=== PATIENT | female | born 1970 | race Caucasian/White ===

== ENCOUNTER 2016-10-10 13:14 | Emergency (ER) | payer SELFPAY ==
[~2016-10-10] VITALS: Ht 152.4 cm; Wt 62.8 kg
[2016-10-10 15:50] LABS: microscopic required? YES; urine erythrocyte 2+ (NEGATIVE)
[2016-10-10 17:11] LABS: BASOPHIL % 0.7 % (0-2); PLATELET COUNT 351 x10^3mcL (130-400)
[2016-10-10 17:16] LABS: RED CELL DISTRIBUTION WIDTH 14.9 % (11.5-14.5)
[2016-10-10 17:23] LABS: CALCIUM 9.1 mg/dL (8.5-10.1); CHLORIDE SERUM 104 mmol/L (98-107); CREATININE SERUM 0.7 mg/dL (0.6-1.0); GFR1 > 60 mL/min; GLUCOSE SERUM 86 mg/dL (74-106); POTASSIUM SERUM 4.3 mmol/L (3.5-5.1); SODIUM SERUM 140 mmol/L (136-145)
[2016-10-10 17:28] LABS: ALBUMIN 3.9 g/dL (3.4-5.0); ALKALINE PHOSPHATASE 97 U/L (46-116); ALT/SGPT 34 U/L (14-59); AST/SGOT 20 U/L (15-37); BILIRUBIN TOTAL 0.4 mg/dL (0.20-1.00); TOTAL PROTEIN, SERUM 7.6 g/dL (6.4-8.2)
[2016-10-10 19:11] VITALS: BP 110/54
== END 2016-10-10 19:11 | disposition home or self-care (01) ==
LOC: ED 13:14
PROVIDERS: Emergency Medicine
DX: N10 Acute pyelonephritis (principal); D35.00 Benign neoplasm of unspecified adrenal gland
CPT/HCPCS: J0696; J1885; J2405; J3010; J7030